=== PATIENT | female | born 1995 | race Caucasian/White ===

== ENCOUNTER 2020-09-26 15:40 | Emergency (ER) | payer OTHER ==
[2020-09-26 16:00] VITALS: TEMP 97.9; BMI 17.3
[2020-09-26] MEDS ORDERED: ONDANSETRON *ODT* 4 MG TABLET SL ONE (16:35)
[2020-09-26] MEDS ORDERED: ONDANSETRON *ODT* 4 MG TABLET ONE (16:54)
[2020-09-26 17:27] LABS: URINE APPEARANCE CLOUDY; URINE BILIRUBIN NEGATIVE (NEGATIVE); URINE COLOR DK YELLOW; URINE GLUCOSE (UA) NEGATIVE (NEGATIVE); URINE KETONE 1+ (NEGATIVE); URINE LEUK ESTERASE NEGATIVE (NEGATIVE); URINE NITRITE NEGATIVE (NEGATIVE); URINE PROTEIN TRACE (NEGATIVE)
[2020-09-26 17:29] LABS: HCG,QUALITATIVE URINE Negative
[2020-09-26 17:35] LABS: BASO % 0.3 % (0-2.0); EOS % 0.4 % (0-4.5); HEMATOCRIT 37.6 % (32.4-45.2); HEMOGLOBIN 12.6 GM/dL (10.7-15.3); LYMPH % 7.9 % (8-40); MCH 28.7 pg (25.7-33.7); MCHC 33.6 g/dl (32.0-36.0); MEAN CELL VOLUME 85.5 fl (80-96); MEAN PLT VOLUME 8.5 fl (7.5-11.1); NEUT % 85.4 % (42.8-82.8); PLATELET COUNT 261 10^3/uL (134-434); RDW 14.2 % (11.6-15.6); WHITE BLOOD COUNT 12.2 K/mm3 (4.0-10.0)
[2020-09-26 17:57] LABS: CALCIUM 9.3 mg/dL (8.5-10.1)
[2020-09-26 17:58] LABS: BLOOD UREA NITROGEN 11.3 mg/dL (7-18)
[2020-09-26 18:00] LABS: CREATININE 0.7 mg/dL (0.55-1.3)
[2020-09-26 18:26] VITALS: BP 103/68; PULSE 71
== END 2020-09-26 19:43 | disposition home or self-care (01) ==
LOC: JER 15:40
DX: R10.32 Left lower quadrant pain (principal)
CPT/HCPCS: 36415; 80048; 81003; 84703; 85025; 93005; 93010; 99284-25; Q0162